=== PATIENT | female | born 2000 | race Caucasian/White ===

== ENCOUNTER 2023-10-23 20:55 | Emergency (ER) | payer OTHER ==
[~2023-10-23 20:55] MED LIST: PREDNISOLONE ACE5 M4 OP; ZOFRAN ODT4 MG PO
[2023-10-23] MEDS ORDERED: MORGIDOX 2X100100 MG PO (21:42)
[2023-10-23] MEDS ORDERED: Doxycycline Monohydrate 100 MG CAP PO ONE (21:45)
[2023-10-23 21:49] VITALS: BP 139/91
== END 2023-10-23 21:49 | disposition home or self-care (01) ==
LOC: ED 20:55
DX: N90.7 Vulvar cyst (principal); Z88.0 Allergy status to penicillin; Z88.1 Allergy status to other antibiotic agents

== ENCOUNTER 2023-10-27 23:17 | Emergency (ER) | payer OTHER ==
[~2023-10-27] VITALS: Ht 157.5 cm; Wt 74.5 kg
[~2023-10-27 23:17] MED LIST changes: +MORGIDOX 2X100100 MG PO
[2023-10-28] MEDS ORDERED: HYDROcodone/Acetaminophen 7.5-325 MG TAB PO ONE (00:30)
[2023-10-28] MEDS ORDERED: BACTRIM DS TAB1 EACH PO (00:42)
[2023-10-28] MEDS ORDERED: METRONIDAZOLE500 M1 PO (00:42)
[2023-10-28] MEDS ORDERED: metroNIDAZOLE 250 MG TABLET PO ONE (00:45)
[2023-10-28] MEDS ORDERED: Sulfamethoxazole/Trimethoprim 800-160 MG TAB PO ONE (00:45)
[2023-10-28] MEDS ORDERED: ZOFRAN ODT4 MG PO (01:05)
[2023-10-28 01:08] VITALS: BP 111/76
== END 2023-10-28 01:10 | disposition home or self-care (01) ==
LOC: ED 23:17
DX: N76.4 Abscess of vulva (principal); Z88.0 Allergy status to penicillin; Z88.1 Allergy status to other antibiotic agents